=== PATIENT | male | born 1965 | race Caucasian/White ===

== ENCOUNTER 2019-04-05 00:02 | Emergency (ER) | payer BC, SELFPAY ==
[2019-04-05 00:03] VITALS: BP 119/90; PULSE 97; RESP 16; TEMP 36.6; O2SAT 98; BMI 27.9
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
[2019-04-05] MEDS: oxyCODONE 5 MG Tablet 10 MG PO (00:19)
--- NOTE | 2019-04-05 02:09 | ED.RN ---
pt educated on written and verbal discharge instructions as well as home going prescriptions. refuses d/c vs. awaiting meds to bed.
== END 2019-04-05 02:52 | disposition home or self-care (01) ==
PROVIDERS: Emergency Provider Emergency Medicine
DX: S43.102A Unspecified dislocation of left acromioclavicular joint, initial encounter (principal); Z72.0 Tobacco use; V28.0XXA Motorcycle driver injured in noncollision transport accident in nontraffic accident, initial encounter; Y93.I9 Activity, other involving external motion; Y92.410 Unspecified street and highway as the place of occurrence of the external cause; Y99.8 Other external cause status
CPT/HCPCS: 73030; 99283